=== PATIENT | female | born 1980 | race Caucasian/White ===

== ENCOUNTER 2016-09-14 14:31 | Emergency (ER) | payer MEDICAID ==
[2016-09-14] MEDS ORDERED: IBUPROFEN 400 MG TABLET PO STA (15:04)
[2016-09-14] MEDS ORDERED: oxyCOD/ACETAMIN 5 MG/325 MG TABLET PO STA (15:04)
[2016-09-14] MEDS ORDERED: oxyCOD/ACETAMIN 5 MG/325 MG TABLET PO ONE (15:09)
[2016-09-14] MEDS ORDERED: IBUPROFEN 400 MG TABLET PO ONE (15:09)
== END 2016-09-14 16:14 | disposition home or self-care (01) ==
DX: S90.31XA Contusion of right foot, initial encounter (principal); W22.8XXA Striking against or struck by other objects, initial encounter; M77.31 Calcaneal spur, right foot; Z86.718 Personal history of other venous thrombosis and embolism; F17.200 Nicotine dependence, unspecified, uncomplicated
CPT/HCPCS: 73650; 99283; A9270

== ENCOUNTER 2016-09-25 10:24 | Emergency (ER) | payer MEDICAID ==
[2016-09-25] MEDS ORDERED: CLINDAMYCIN 150 MG CAPSULE PO STA (12:44)
[2016-09-25] MEDS ORDERED: HYDROcod/ACETAM 5/325 MG TABLET PO STA (12:45)
[2016-09-25] MEDS ORDERED: IBUPROFEN 400 MG TABLET PO STA (12:45)
[2016-09-25] MEDS ORDERED: HYDROcod/ACETAM 5/325 MG TABLET ONE (12:50)
[2016-09-25] MEDS ORDERED: CLINDAMYCIN 150 MG CAPSULE PO ONE (12:50)
[2016-09-25] MEDS ORDERED: IBUPROFEN 400 MG TABLET PO ONE (12:51)
== END 2016-09-25 14:08 | disposition home or self-care (01) ==
DX: S02.5XXA Fracture of tooth (traumatic), initial encounter for closed fracture (principal); X58.XXXA Exposure to other specified factors, initial encounter; Y93.89 Activity, other specified; R03.0 Elevated blood-pressure reading, without diagnosis of hypertension; F17.200 Nicotine dependence, unspecified, uncomplicated; Z86.718 Personal history of other venous thrombosis and embolism
CPT/HCPCS: 36415; 85025; 99283; A9270

== ENCOUNTER 2017-01-13 20:25 | Emergency (ER) | payer MEDICAID ==
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
[2017-01-13 21:16] VITALS: BP 141/79
== END 2017-01-13 21:16 | disposition home or self-care (01) ==
LOC: ED 20:25
DX: T22.00XA Burn of unspecified degree of shoulder and upper limb, except wrist and hand, unspecified site, initial encounter (principal); X08.8XXA Exposure to other specified smoke, fire and flames, initial encounter; F17.200 Nicotine dependence, unspecified, uncomplicated
CPT/HCPCS: 99282

== ENCOUNTER 2017-01-30 14:39 | Emergency (ER) | payer MEDICAID ==
[2017-01-30 14:51] VITALS: BP 128/83
--- NOTE | 2017-01-30 16:07 | XRAY Preliminary Report ---
Exam: XR KNEE 4 VIEW RT IMPRESSION: No fracture or joint effusion. [facility] SITE ID: [id number]
--- NOTE | 2017-01-30 16:09 | XRAY Report ---
EXAM: RIGHT KNEE RADIOGRAPHY EXAM DATE: 01/30/2017 03:36 PM. CLINICAL HISTORY: Twisted knee two days ago. COMPARISON: None. TECHNIQUE: 4 views. FINDINGS: Bones: Normal. No fractures or bone lesions. Joints: Normal. No effusion. No subluxations. Soft Tissues: Normal. No soft tissue swelling. IMPRESSION: No fracture or joint effusion. [facility] Referring Provider Line: [phone] SITE ID: [id number]
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
== END 2017-01-30 18:00 | disposition home or self-care (01) ==
LOC: ED 14:39
DX: S83.411A Sprain of medial collateral ligament of right knee, initial encounter (principal); W08.XXXA Fall from other furniture, initial encounter; Y92.018 Other place in single-family (private) house as the place of occurrence of the external cause; Z86.718 Personal history of other venous thrombosis and embolism; F17.200 Nicotine dependence, unspecified, uncomplicated
CPT/HCPCS: 99283

== ENCOUNTER 2018-10-31 08:31 | Emergency (ER) | payer MEDICAID ==
[2018-10-31 08:37] VITALS: BP 139/78
--- NOTE | 2018-10-31 08:48 | ED Physician Documentation ---
PD HPI LOWER EXT INJURY - Stated complaint Stated Complaint: RT FT SWELLING/PAIN - Chief complaint Chief Complaint: Ext Problem - History obtained from History obtained from: Patient - History of Present Illness PD HPI LOW EXT INJURY LOCATION: Right, Foot Type of injury: Twist (she says she stepped in a hole and twisted foot. Has had pain since. Not improved with time and NSAIDs.) Timing - onset: How many months ago (1) Timing - duration: Months (1) Timing - details: Abrupt onset, Still present, Waxing and waning Worsened by: Moving, Other (walking) Associated symptoms: Swelling. 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 : None HEENT: None Psych: Depression, ADD/ADHD Musculoskeletal: None Derm: None - Past Surgical History Past Surgical History: Yes General: Cholecystectomy HEENT: Tonsil/Adenoidectomy - Present Medications Home Medications: Ambulatory Orders Medication Instructions Recorded Confirmed Methocarbamol 500 mg PO DAILY 01/30/17 01/30/17 Dexamethasone [Decadron] 4 mg PO DAILY #5 tablet 10/31/18 Hydrocodone/Acetaminophen [Ranger 1 each PO Q6H PRN #15 tablet 10/31/18 5-325 Tablet] Naproxen 500 mg PO BID #20 tablet 10/31/18 - Allergies Allergies/Adverse Reactions: Allergies Allergy/AdvReac Type Severity Reaction Status Date / Time amoxicillin [Amoxicillin] Allergy Rash Verified 01/13/17 20:35 cephalexin monohydrate * Allergy Nausea Verified 10/31/18 08:37 [From Keflex] - Social History Does the pt smoke?: Yes Smoking Status: Current every day smoker Does the pt drink ETOH?: No Does the pt have substance abuse?: No - Immunizations Immunizations are current?: Yes - POLST Patient has POLST: No PD ED PE NORMAL - Vitals Vital signs reviewed: Yes - General General: Alert and oriented X 3, No acute distress, Well developed/nourished - Derm Derm: Normal color, Warm and dry, No rash - Extremities Extremities: No edema, No calf tenderness / cord, Other (dorsolateral mid foot with tenderness. No redness nor swelling. Hurts with inversion. No plantar tenderness. ) - Neuro Neuro: No motor deficit, No sensory deficit Results - Vitals Vitals: Vital Signs - 24 hr 10/31/18 08:35 Temperature 36.6 C Heart Rate 77 Respiratory 20 Rate Blood Pressure 139/78 H O2 Saturation 99 Oxygen O2 Source Room air - Rads (name of study) right foot Radiology: Prelim report reviewed, EMP read contemporaneously (no fractures), See rad report PD MEDICAL DECISION MAKING - ED course Complexity details: reviewed results, considered differential (onset with twisting of foot when stepped in hole. Continued pain. No fractures on xray. Presume tendonitis/sprain.), d/w patient Departure - Departure Disposition: 01 Home, Self Care Clinical Impression: Extensor tendonitis of foot Right foot strain Qualifiers: Encounter type: initial encounter Qualified Code(s): S96.911A - Strain of unspecified muscle and tendon at ankle and foot level, right foot, initial encounter Condition: Stable Record reviewed to determine appropriate education?: Yes Instructions: ED Sprain Foot Prescriptions: Dexamethasone [Decadron] 4 mg PO DAILY #5 tablet Hydrocodone/Acetaminophen [Ranger 5-325 Tablet] 1 each PO Q6H PRN #15 tablet PRN Reason: Pain Naproxen 500 mg PO BID #20 tablet Comments: Your x-ray appears normal without any fractures. Presume you have some tendinitis or sprain of the foot that just is slow to improve. Add the postop shoe to reduce motion through the midfoot. Add anti-inflammatories some naproxen and Decadron as prescribed. Continue Tylenol as needed for pain. Add hydrocodone if needed for worse pain. Also consider possibly the pain and tenderness being from a gout episode in response to the injury. This would get treated with the above medications as well. However if you have recurrent episodes in the foot or other joints in the future, your primary care may want to do some more evaluation for possible gout. Discharge Date/Time: 10/31/18 11:00
[2018-10-31] MEDS ORDERED: NAPROXEN 250 MG TABLET PO STA (09:18)
[2018-10-31] MEDS ORDERED: DEXAMETHASONE 10 MG/ML VIAL PO STA (09:18)
[2018-10-31] MEDS ORDERED: CHERRY SYRUP 10 ML UDC PO ONE (09:18)
--- NOTE | 2018-10-31 10:01 | XRAY Report ---
Reason: foot pain for couple weeks, after twisting injury Procedure Date: 10/31/2018 Accession Number: [id number] / [id number] Procedure: XR - Foot 3 View RT CPT Code: FULL RESULT: EXAM: RIGHT FOOT RADIOGRAPHY EXAM DATE: 10/31/2018 09:31 AM. CLINICAL HISTORY: Persistent dorsal right foot pain for 3 weeks after a twisting injury. COMPARISON: Right calcaneus radiography performed on 09/14/2016. TECHNIQUE: 3 views. FINDINGS: Bones: Normal bone mineralization. No fracture. Benign bone island in the calcaneus. Small plantar calcaneal spur. No other focal bone lesion. Joints: Normal. No subluxations. Soft Tissues: Mild dorsal right forefoot soft tissue swelling. IMPRESSION: 1. Mild dorsal right forefoot soft tissue swelling. No fracture or subluxation. 2. Benign bone island in the calcaneus. 3. Small plantar calcaneal spur. [facility]
== END 2018-10-31 11:00 | disposition home or self-care (01) ==
LOC: ED 08:31
DX: M77.51 Other enthesopathy of right foot and ankle (principal); S96.911A Strain of unspecified muscle and tendon at ankle and foot level, right foot, initial encounter; X50.1XXA Overexertion from prolonged static or awkward postures, initial encounter; F17.200 Nicotine dependence, unspecified, uncomplicated
CPT/HCPCS: 73630; 99283; A9270

== ENCOUNTER 2020-02-29 16:58 | Emergency (ER) | payer MEDICAID ==
[2020-02-29] MEDS ORDERED: KETOROLAC 60 MG/2 ML VIAL IM STA (17:05)
[2020-02-29 17:06] VITALS: BP 148/98
--- NOTE | 2020-02-29 17:06 | ED Physician Documentation ---
PD HPI LOWER EXT INJURY - Stated complaint Stated Complaint: RT SHOULDER INJ - Chief complaint Chief Complaint: Ext Problem - History obtained from History obtained from: Patient - History of Present Illness PD HPI LOW EXT INJURY LOCATION: Right - Additional information Additional information: She has had trouble with the right shoulder and neck before but this is a new problem. She was making the bed this afternoon and sounds like she was externally rotating the right shoulder and without an injury such as a fall per se she developed severe pain near the right AC joint and difficulty with range of motion. No other injuries. 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 HEENT: None Psych: Depression, ADD/ADHD Musculoskeletal: None Derm: None - Past Surgical History Past Surgical History: Yes General: Cholecystectomy HEENT: Tonsil/Adenoidectomy - Present Medications Home Medications: Ambulatory Orders Medication Instructions Recorded Confirmed methocarbamoL [Methocarbamol] 500 mg PO DAILY 01/30/17 01/30/17 Hydrocodone/Acetaminophen [[place]on 1 each PO Q6H PRN #15 tablet 10/31/18 5-325 Tablet] Naproxen 500 mg PO BID #20 tablet 10/31/18 dexAMETHasone [Decadron] 4 mg PO DAILY #5 tablet 10/31/18 Cyclobenzaprine [Flexeril] 10 mg PO TID PRN #20 tablet 01/27/20 HYDROcod/ACETAM 5/325 [Grafton 5/325] 1 - 2 ea PO Q6H PRN #15 tablet 01/27/20 Ketorolac [Toradol] 10 mg PO Q6H PRN #15 tablet 02/29/20 - Allergies Allergies/Adverse Reactions: Allergies Allergy/AdvReac Type Severity Reaction Status Date / Time amoxicillin [Amoxicillin] Allergy Rash Verified 02/29/20 17:04 cephalexin monohydrate * Allergy Nausea Verified 02/29/20 17:04 [From Keflex] - Social History Does the pt smoke?: Yes Smoking Status: Current every day smoker Does the pt drink ETOH?: No Does the pt have substance abuse?: No - Immunizations Immunizations are current?: Yes - POLST Patient has POLST: No PD ED PE NORMAL - Vitals Vital signs reviewed: Yes - General General: Alert and oriented X 3, No acute distress - Neck Neck: Supple, no meningeal sign, No bony TTP - Extremities Extremities: Other (Tender over the right AC joint and can only abduct to about 45 degrees and stops then due to pain, no better passively.) - Neuro Neuro: Alert and oriented X 3, Normal speech Results - Vitals Vitals: Vital Signs - 24 hr 02/29/20 17:04 Temperature 36.8 C Heart Rate 80 Respiratory 16 Rate Blood Pressure 148/98 H O2 Saturation 100 Oxygen O2 Source Room air - Rads (name of study) R shoulder Radiology: EMP read contemporaneously (neg) Departure - Departure Disposition: Home, Self Care Clinical Impression: Right shoulder strain Qualifiers: Encounter type: initial encounter Qualified Code(s): S46.911A - Strain of unspecified muscle, fascia and tendon at shoulder and upper arm level, right arm, initial encounter Condition: Good Record reviewed to determine appropriate education?: Yes Instructions: ED Sprain AC Joint Prescriptions: Ketorolac [Toradol] 10 mg PO Q6H PRN #15 tablet PRN Reason: Pain Comments: Call your doctor to arrange a follow-up appointment, make the next available appointment. In the interim, return anytime if worse or if new symptoms develop. Discharge Date/Time: 02/29/20 18:13
--- NOTE | 2020-02-29 17:58 | XRAY Report ---
PROCEDURE: Shoulder 3 View RT INDICATIONS: shoulder pain/inj TECHNIQUE: 3 views of the shoulder were acquired. COMPARISON: None. FINDINGS: Bones: No fractures or dislocations. No suspicious bony lesions. Visualized ribs appear intact. Soft tissues: No suspicious soft tissue calcifications. IMPRESSION: No visualized acute fracture or dislocation. However, occult injury cannot be excluded. Recommend short interval imaging follow-up in 7-10 days as clinically indicated for additional evalua tion. Reviewed by: Lorena Gómez MD on 02/29/2020 5:57 PM PDT Approved by: Lorena Gómez MD on 02/29/2020 5:57 PM PDT Station ID: [id number]
[2020-02-29] MEDS ORDERED: HYDROcod/ACET 5/325 Prepack 4 PO STA (18:04)
== END 2020-02-29 18:13 | disposition home or self-care (01) ==
LOC: ED 16:58
DX: S46.911A Strain of unspecified muscle, fascia and tendon at shoulder and upper arm level, right arm, initial encounter (principal); X50.1XXA Overexertion from prolonged static or awkward postures, initial encounter; Y93.E9 Activity, other interior property and clothing maintenance; F17.210 Nicotine dependence, cigarettes, uncomplicated
CPT/HCPCS: 96372; 99283

== ENCOUNTER 2020-04-14 20:15 | Emergency (ER) | payer MEDICAID ==
[2020-04-14 20:51] LABS: BILIRUBIN,URINE NEGATIVE (NEGATIVE); GLUCOSE, URINE (UA) NEGATIVE (NEGATIVE); KETONES,URINE (UA) NEGATIVE (NEGATIVE); LEUKOCYTE ESTERASE, URINE TRACE (NEGATIVE); NITRITE,URINE NEGATIVE (NEGATIVE); OCCULT BLOOD,URINE TRACE-INTA (NEGATIVE); PH,URINE 7.5 PH (5.0-7.5); PROTEIN,URINE NEGATIVE (NEGATIVE); UROBILINOGEN,URINE 0.2 (NORMAL) E.U./dL (NORMAL)
[2020-04-14 20:54] LABS: CLARITY,URINE HAZY (CLEAR); HCG UR QUAL NEGATIVE
[2020-04-14 20:59] LABS: AMORPHOUS SEDIMENT,UR Moderate /LPF; BACTERIA,URINE Few /HPF (None Seen); RBC,URINE 0-5 /HPF (0-5); SQUAMOUS EPITHELIAL CELL,UR MOD Squamous (<= Few)
--- NOTE | 2020-04-14 21:02 | ED Physician Documentation ---
History of Present Illness - Stated complaint Stated Complaint: ABD PX - Chief complaint Chief Complaint: Abd Pain - Additonal information Additional information: 39-year-old female presents to the emergency department for evaluation of acute lower abdominal pain. She reports that this a.m. she woke up and had some periumbilical pain. However shortly after it migrated to the right lower quadrant. It feels like a tugging or pulling on her abdomen. She denies fevers or dysuria. This afternoon when she got home from work she ate dinner but it caused increasing nausea and worsening pain therefore she presents here for further evaluation Past surgical history includes previous cholecystectomy. Meds: meloxicam. Review of Systems Constitutional: reports: Reviewed and negative Ears: reports: Reviewed and negative Nose: reports: Reviewed and negative Throat: reports: Reviewed and negative Cardiac: reports: Reviewed and negative Respiratory: reports: Reviewed and negative GI: reports: Abdominal Pain, Nausea. 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, Other : None HEENT: None Psych: Depression, ADD/ADHD Musculoskeletal: None Derm: None Other Past Medical History: PCOS - Past Surgical History Past Surgical History: Yes General: Cholecystectomy HEENT: Tonsil/Adenoidectomy - Present Medications Home Medications: Ambulatory Orders Medication Instructions Recorded Confirmed methocarbamoL [Methocarbamol] 500 mg PO DAILY 01/30/17 01/30/17 Hydrocodone/Acetaminophen [[place] 1 each PO Q6H PRN #15 tablet 10/31/18 5-325 Tablet] Naproxen 500 mg PO BID #20 tablet 10/31/18 dexAMETHasone [Decadron] 4 mg PO DAILY #5 tablet 10/31/18 Cyclobenzaprine [Flexeril] 10 mg PO TID PRN #20 tablet 01/27/20 HYDROcod/ACETAM 5/325 [[place] 5/325] 1 - 2 ea PO Q6H PRN #15 tablet 01/27/20 Ketorolac [Toradol] 10 mg PO Q6H PRN #15 tablet 02/29/20 - Allergies Allergies/Adverse Reactions: Allergies Allergy/AdvReac Type Severity Reaction Status Date / Time amoxicillin [Amoxicillin] Allergy Rash Verified 04/14/20 20:29 cephalexin monohydrate * Allergy Nausea Verified 04/14/20 20:29 [From Keflex] - Social History Does the pt smoke?: No Smoking Status: Former smoker Does the pt drink ETOH?: No Does the pt have substance abuse?: No Substance Use and Type: Marijuana - Immunizations Immunizations are current?: Yes - POLST Patient has POLST: No PD ED PE EXPANDED - General General: Alert, No acute distress - Cardiac Cardiac: Regular Rate, Regular Rhythm, Radial strong equal, Pedal strong equal, Cap refill < 2 sec - Respiratory Respiratory: Clear to ausultation derek. No: Distress, Labored - Abdomen Abdomen: Normal Bowel sounds, Rebound, RLQ (Focal tenderness to light palpation right lower quadrant. Positive psoas positive McBurney's) - Derm Derm: Normal color, Warm and dry, Pale. No: Rash - Extremities Extremities: Normal - Neuro Neuro: Alert and Oriented X 3, CNII-XII intact - GCS Eye Opening: Spontaneous Motor: Obeys Commands Verbal: Oriented Total: 15 Results - Vitals Vitals: Vital Signs - 24 hr 04/14/20 04/14/20 20:27 20:40 Temperature 36.7 C Heart Rate 92 86 Respiratory 18 18 Rate Blood Pressure 145/84 H 141/84 H O2 Saturation 99 99 Oxygen O2 Source Room air - Labs Labs: Laboratory Tests 04/14/20 04/14/20 04/14/20 20:44 20:44 21:05 WBC 8.3 RBC 4.22 Hgb 13.4 Hct 40.2 MCV 95.3 MCH 31.8 H MCHC 33.3 RDW 12.9 Plt Count 217 MPV 9.6 Neut # (Auto) 4.9 Lymph # (Auto) 2.8 Phelps # (Auto) 0.5 Eos # (Auto) 0.1 Baso # (Auto) 0.1 Absolute Nucleated RBC 0.00 Nucleated RBC % 0.0 Sodium Potassium Chloride Carbon Dioxide Anion Gap BUN Creatinine Estimated GFR (MDRD) Glucose Calcium Total Bilirubin AST ALT Alkaline Phosphatase Total Protein Albumin Globulin Albumin/Globulin Ratio Lipase Urine Color YELLOW Urine Clarity HAZY Urine pH 7.5 Ur Specific [place] 1.020 1.020 Urine Protein NEGATIVE Urine Glucose (UA) NEGATIVE Urine Ketones NEGATIVE Urine Occult Blood TRACE-INTA Urine Nitrite NEGATIVE Urine Bilirubin NEGATIVE Urine Urobilinogen 0.2 (NORMAL) Ur Leukocyte Esterase TRACE H Urine RBC 0-5 Urine WBC 0-3 Ur Squamous Epith Cells MOD Squamous H Amorphous Sediment Moderate Urine Bacteria Few Ur Microscopic Review INDICATED Urine Culture Comments NOT INDICATED Urine HCG, Qual NEGATIVE 04/14/20 21:05 WBC RBC Hgb Hct MCV MCH MCHC RDW Plt Count MPV Neut # (Auto) Lymph # (Auto) Phelps # (Auto) Eos # (Auto) Baso # (Auto) Absolute Nucleated RBC Nucleated RBC % Sodium 136 Potassium 3.6 Chloride 101 Carbon Dioxide 27 Anion Gap 8.0 BUN 20 Creatinine 0.8 Estimated GFR (MDRD) 81 L Glucose 103 H Calcium 9.4 Total Bilirubin 0.6 AST 19 ALT 21 Alkaline Phosphatase 49 Total Protein 7.3 Albumin 4.3 Globulin 3.0 Albumin/Globulin Ratio 1.4 Lipase 43 Urine Color Urine Clarity Urine pH Ur Specific [place] Urine Protein Urine Glucose (UA) Urine Ketones Urine Occult Blood Urine Nitrite Urine Bilirubin Urine Urobilinogen Ur Leukocyte Esterase Urine RBC Urine WBC Ur Squamous Epith Cells Amorphous Sediment Urine Bacteria Ur Microscopic Review Urine Culture Comments Urine HCG, Qual - Rads (name of study) CT abd Radiology: Prelim report reviewed, Final report received PD MEDICAL DECISION MAKING - ED course Complexity details: reviewed results, re-evaluated patient, considered differential, d/w patient, d/w family ED course: 39-year-old female presents the emergency department for evaluation of acute onset now right lower quadrant abdominal pain. History and exam most concerning for acute appendicitis. CT of the abdomen is pending. - Labs reviewed in full. No acute abnormalities. Specifically no leukocytosis. Patient is not . CT of the abdomen did show a 3.2 x 3.4 cm right adnexal cyst likely ovarian. These findings were discussed with the patient. At this time her pain is moderate and improved following Dilaudid in the ER. I have recommended to her that she continue the meloxicam at home and alternate with Tylenol. Also close follow-up with primary care provider. Emergent return precautions discussed. Departure - Departure Disposition: Home, Self Care Clinical Impression: Ovarian cyst, right Condition: Stable Record reviewed to determine appropriate education?: Yes Comments: The CT of your abdomen showed that you have a 3.6 cm right ovarian cyst. This is most likely the cause of your pain. I would continue to alternate Tylenol with meloxicam at home. Warm compress may also be helpful. Please discuss this ED visit with your primary care doctor. Return to the emergency department if you develop fevers, have suddenly severe or different pain, uncontrolled vomiting or any other emergent concerns
[2020-04-14] MEDS ORDERED: ONDANSETRON 4 MG/2 ML VIAL IVP STA (21:03)
[2020-04-14] MEDS ORDERED: HYDROmorphone 1 MG/ML CARPUJECT IVP STA (21:03)
[2020-04-14 21:12] LABS: BASOPHILS # (AUTO) 0.1 10^3/uL (0.0-0.1); BASOPHILS % (AUTO) 0.6 %; EOSINOPHILS # (AUTO) 0.1 10^3/uL (0.0-0.7); EOSINOPHILS % (AUTO) 1.1 %; HGB - HEMOGLOBIN 13.4 g/dL (12.0-16.0); LYMPHOCYTES # (AUTO) 2.8 10^3/uL (1.5-3.5); LYMPHOCYTES % (AUTO) 33.9 %; MEAN CORPUSCULAR HEMOGLOBIN 31.8 pg (27.0-31.0); MEAN CORPUSCULAR HGB CONC 33.3 g/dL (32.0-36.0); MEAN CORPUSCULAR VOLUME 95.3 fL (81.0-99.0); MEAN PLATELET VOLUME 9.6 fL (7.9-10.8); MONOCYTES # (AUTO) 0.5 10^3/uL (0.0-1.0); MONOCYTES % (AUTO) 5.9 %; NEUTROPHILS # (AUTO) 4.9 10^3/uL (1.5-6.6); NEUTROPHILS % (AUTO) 58.3 %; PLT - PLATELET COUNT 217 10^3/uL (130-450); RED BLOOD COUNT 4.22 10^6/uL (4.20-5.40); RED CELL DISTRIBUTION WIDTH 12.9 % (12.0-15.0); WHITE BLOOD COUNT 8.3 x10^3/uL (4.8-10.8)
[2020-04-14 21:29] LABS: ALBUMIN 4.3 g/dL (3.2-5.5); ALBUMIN/GLOBULIN RATIO 1.4 (1.0-2.2); BILIRUBIN,TOTAL 0.6 mg/dL (0.2-1.0); CALCIUM 9.4 mg/dL (8.5-10.3); CREATININE 0.8 mg/dL (0.4-1.0); TOTAL PROTEIN 7.3 g/dL (6.7-8.2)
[2020-04-14] MEDS ORDERED: IOVERSOL 320 100 ML VIAL IVP ONE ×2 (21:39→21:58)
--- NOTE | 2020-04-14 22:05 | CT Report ---
PROCEDURE: Abdomen/Pelvis W INDICATIONS: RLQ pain; eval appy CONTRAST: IV CONTRAST: Optiray 320 ml: 100 PO CONTRAST: *NO PO CONTRAST TECHNIQUE: After the administration of intravenous contrast, 5 mm thick sections acquired from the diaphragms to the symphysis. 5 mm thick coronal and sagittal reformats were acquired. For radiation dose reducti on, the following was used: automated exposure control, adjustment of mA and/or kV according to zeyad ent size. COMPARISON: None. FINDINGS: Image quality: Excellent. ABDOMEN: Lung bases: Lung bases are clear. Heart size is normal. Solid organs: Liver and spleen are normal in size and enhancement. Gallbladder is surgically absent . Biliary system is non dilated. Pancreas enhances normally. No adrenal nodules. Kidneys demonstr ate normal size and enhancement, without hydronephrosis. Bilateral small nonobstructing renal stones . Peritoneum and bowel: Bowel loops demonstrate normal wall thickness and caliber. No free fluid or a ir. A normal appendix is identified. Nodes and vessels: No retroperitoneal or mesenteric adenopathy by size criteria. Aorta and inferior vena cava are normal in size. Miscellaneous: No ventral hernias. PELVIS: Genitourinary: Bladder wall thickness is normal. Miscellaneous: No inguinal hernias or adenopathy. 3.9 cm right adnexal cyst. Bones: No suspicious bony lesions. No vertebral body compression fractures. IMPRESSION: 1. There is a normal appendix. There is no evidence of acute appendicitis. 2. A 3.9 cm right adnexal cyst may potentially be the etiology of the patient's right lower quadrant pain. Reviewed by: Molina Elmore MD on 04/14/2020 10:04 PM PDT Approved by: Molina Elmore MD on 04/14/2020 10:04 PM PDT Station ID: [id number]
[2020-04-14 22:23] VITALS: BP 147/89
== END 2020-04-14 22:23 | disposition home or self-care (01) ==
LOC: ED 20:15
DX: N83.201 Unspecified ovarian cyst, right side (principal); Z86.718 Personal history of other venous thrombosis and embolism; Z87.891 Personal history of nicotine dependence
CPT/HCPCS: 36415; 74177; 80053; 81001; 81025; 83690; 85025; 96374; 99284; J1170; Q9967; 81003; 87086

== ENCOUNTER 2020-04-19 19:30 | Emergency (ER) | payer MEDICAID ==
[2020-04-19] MEDS ORDERED: ONDANSETRON 4 MG/2 ML VIAL IVP STA (19:43)
[2020-04-19] MEDS ORDERED: HYDROmorphone 1 MG/ML CARPUJECT IVP STA (19:43)
[2020-04-19] MEDS ORDERED: KETOROLAC 30 MG/ML VIAL IVP STA (19:43)
--- NOTE | 2020-04-19 19:45 | ED Physician Documentation ---
PD HPI ABD PAIN - Stated complaint Stated Complaint: SIDE PAIN, NAUSEA - Chief complaint Chief Complaint: Abd Pain - History obtained from History obtained from: Patient - Additional information Additional information: Recent diagnosis 3.6 cm right adnexal cyst. Pain gradually worse today and her doctor had told her if it got worse that she should seek emergency evaluation to make sure it was not coursing. She is mildly nauseous. Denies fevers. She has had some brownish vaginal discharge. 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, Other : None HEENT: None Psych: Depression, ADD/ADHD Musculoskeletal: None Derm: None - Past Surgical History Past Surgical History: Yes General: Cholecystectomy HEENT: Tonsil/Adenoidectomy - Present Medications Home Medications: Ambulatory Orders Medication Instructions Recorded Confirmed Hydrocodone/Acetaminophen [[place] 1 each PO Q6H PRN #15 tablet 10/31/18 5-325 Tablet] dexAMETHasone [Decadron] 4 mg PO DAILY #5 tablet 10/31/18 Cyclobenzaprine [Flexeril] 10 mg PO TID PRN #20 tablet 01/27/20 HYDROcod/ACETAM 5/325 [[place] 5/325] 1 - 2 ea PO Q6H PRN #15 tablet 01/27/20 Oxycodone HCl/Acetaminophen 1 - 2 each PO Q6H PRN #10 tablet 04/19/20 [Percocet 5-325 mg Tablet] - Allergies Allergies/Adverse Reactions: Allergies Allergy/AdvReac Type Severity Reaction Status Date / Time amoxicillin [Amoxicillin] Allergy Rash Verified 04/14/20 20:29 cephalexin monohydrate * Allergy Nausea Verified 04/14/20 20:29 [From Keflex] - Social History Does the pt smoke?: No Smoking Status: Former smoker Does the pt drink ETOH?: No Does the pt have substance abuse?: No - Immunizations Immunizations are current?: Yes - POLST Patient has POLST: No PD ED PE NORMAL - Vitals Vital signs reviewed: Yes - General General: Alert and oriented X 3, Other (She appears comfortable and not in overt distress.) - Abdomen Abdomen: Normal bowel sounds, Soft, Other (Mild right-sided abdominal tenderness without surgical signs) - Back Back: No CVA TTP, No spinal TTP - Extremities Extremities: No edema, No calf tenderness / cord - Neuro Neuro: Alert and oriented X 3, Normal speech Results - Vitals Vitals: Vital Signs - 24 hr 04/19/20 04/19/20 19:32 21:20 Temperature 36.8 C Heart Rate 76 70 Respiratory 18 18 Rate Blood Pressure 148/94 H 129/87 H O2 Saturation 98 99 Oxygen O2 Source Room air - Labs Labs: Laboratory Tests 04/19/20 04/19/20 19:50 19:50 WBC 8.0 RBC 4.35 Hgb 13.8 Hct 42.0 MCV 96.6 MCH 31.7 H MCHC 32.9 RDW 12.8 Plt Count 248 MPV 9.6 Neut # (Auto) 4.2 Lymph # (Auto) 3.1 [place] # (Auto) 0.5 Eos # (Auto) 0.2 Baso # (Auto) 0.1 Absolute Nucleated RBC 0.00 Nucleated RBC % 0.0 Sodium 139 Potassium 3.5 Chloride 103 Carbon Dioxide 27 Anion Gap 9.0 BUN 14 Creatinine 0.8 Estimated GFR (MDRD) 81 L Glucose 97 Calcium 9.7 PD MEDICAL DECISION MAKING - ED course ED course: 39-year-old woman presents with known right ovarian cyst with worsening today. Gradual worsening so torsion is unlikely but certainly on the differential. Therefore an ultrasound was done showing involution of the ovarian cyst from 3.9 cm down to 2 cm. She has follow-up follow-up with OB. Departure - Departure Disposition: 01 Home, Self Care Clinical Impression: Ovarian cyst, right Condition: Stable Record reviewed to determine appropriate education?: Yes Instructions: ED Cyst Ovarian Prescriptions: Oxycodone HCl/Acetaminophen [Percocet 5-325 mg Tablet] 1 - 2 each PO Q6H PRN #10 tablet PRN Reason: pain Comments: You were seen today for right-sided abdominal pain. We knew you had an ovarian cyst and there was a concern that it may have torsed. Ultrasound demonstrated good blood flow and the cyst is getting smaller, on the previous CT it was 3.9 cm, now it is about 2 cm. 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 And return if worse. Make sure to take the copy of the ultrasound on CD with you to that appointment. Do not drink or drive while taking narcotic pain medication. Note that many narcotic pain relievers also contain Tylenol/acetaminophen. Please ensure that your total dose of acetaminophen from all sources does not exceed 3 g (3000 mg) per day. You may get constipated while on this medication. Take a stool softener such as Colace twice a day while you are on it. Also add an [id number]-glbrphm laxative such as senna or MiraLAX on any day that you do not have a bowel movement. If you received a narcotic pain medication or sedative while in the emergency department, do not drive for the next 24 hours.
[2020-04-19 20:03] LABS: BASOPHILS # (AUTO) 0.1 10^3/uL (0.0-0.1); BASOPHILS % (AUTO) 0.6 %; EOSINOPHILS # (AUTO) 0.2 10^3/uL (0.0-0.7); EOSINOPHILS % (AUTO) 1.9 %; HGB - HEMOGLOBIN 13.8 g/dL (12.0-16.0); LYMPHOCYTES # (AUTO) 3.1 10^3/uL (1.5-3.5); LYMPHOCYTES % (AUTO) 38.3 %; MEAN CORPUSCULAR HEMOGLOBIN 31.7 pg (27.0-31.0); MEAN CORPUSCULAR HGB CONC 32.9 g/dL (32.0-36.0); MEAN CORPUSCULAR VOLUME 96.6 fL (81.0-99.0); MEAN PLATELET VOLUME 9.6 fL (7.9-10.8); MONOCYTES # (AUTO) 0.5 10^3/uL (0.0-1.0); MONOCYTES % (AUTO) 6.5 %; NEUTROPHILS # (AUTO) 4.2 10^3/uL (1.5-6.6); NEUTROPHILS % (AUTO) 52.3 %; PLT - PLATELET COUNT 248 10^3/uL (130-450); RED BLOOD COUNT 4.35 10^6/uL (4.20-5.40); RED CELL DISTRIBUTION WIDTH 12.8 % (12.0-15.0)
[2020-04-19 20:13] LABS: CALCIUM 9.7 mg/dL (8.5-10.3); CREATININE 0.8 mg/dL (0.4-1.0)
--- NOTE | 2020-04-19 21:15 | Ultrasound Report ---
PROCEDURE: Pelvic w/Transvag+Doppler Comp INDICATIONS: pelvic pain, R TECHNIQUE: Real-time scanning was performed of the pelvic organs, with image documentation. Additional endovagi nal scanning was necessary due to incomplete visualization of the adnexal and endometrial structures by transabdominal scanning. COMPARISON: None. FINDINGS: Transabdominal scanning: Limited scanning through the kidneys shows no hydronephrosis. No pathologi c free abdominal or pelvic fluid. Endovaginal scanning: Uterus: Uterus is normal in size at 2.6 x 5.5 x 8.1 cm. There is a subserosal uterine fibroid in th e anterior midline position measuring 1.7 cm. Small nabothian cysts. The endometrium measures 8 mm in combined thickness. Ovaries: Probable hemorrhagic cyst versus endometrioma in the right ovary measuring 2 cm with periph eral vascularity. Otherwise normal appearance of both ovaries. IMPRESSION: Subserosal uterine fibroid measuring 1.7 cm. Approximately 2 cm right ovarian mass, significantly decreased in size from the 3.9 cm right ovarian mass seen on 04/14/2020 exam, consistent with an involuting hemorrhagic cyst. Follow-up in 4-6 weeks recommended to document complete resolution and exclusion of an endometrioma. Reviewed by: Nathan Clarke MD on 04/19/2020 9:13 PM PST Approved by: Nathan Clarke MD on 04/19/2020 9:13 PM PST Station ID: [id number]
[2020-04-19] MEDS ORDERED: oxyCODONE/ACET 5/325 Prepack 4 PO STA (21:32)
[2020-04-19 21:38] VITALS: BP 131/101
== END 2020-04-19 21:49 | disposition home or self-care (01) ==
LOC: ED 19:30
DX: N83.201 Unspecified ovarian cyst, right side (principal); D25.2 Subserosal leiomyoma of uterus; Z87.891 Personal history of nicotine dependence
CPT/HCPCS: 36415; 76830; 76856; 80048; 85025; 93975; 96374; 96375; 99284; J1170

== ENCOUNTER 2020-07-01 09:11 | Outpatient (CLI) | payer MEDICAID ==
--- OUTSIDE RECORDS SUMMARY | 2020-07-01 09:15 | EXTERNAL MEDICAL SUMMARY RPT | Continuity of Care Document ---
:1980 Demographics Phone Unavailable Preferred Language Swiss Marital Status Unknown Gnosticist Affiliation Unknown Race Unknown Ethnic Group Unknown Author Organization [facility] Address [address] [place] [address] Phone Care Team Providers Name Role Phone RELL Unavailable Unavailable Brennick Unavailable Unavailable Problems date description facility [facility] Ex-smoker (finding) [facility] 2020-04-14 20:15 UNSPECIFIED OVARIAN CYST, RIGHT [facility] SIDE 2020-04-14 20:15 PERSONAL HISTORY OF OTHER VENOUS [facility] THROMBOSIS AND EM 2020-04-14 20:15 PERSONAL HISTORY OF NICOTINE [facility] DEPENDENCE 2020-04-19 19:30 SUBSEROSAL LEIOMYOMA OF UTERUS [facility] 2020-04-19 19:30 UNSPECIFIED OVARIAN CYST, RIGHT [facility] SIDE 2020-04-19 19:30 PERSONAL HISTORY OF NICOTINE [facility] DEPENDENCE Allergies date description facility [facility] NO KNOWN ENVIRONMENTAL ALLERGIES [facility] NO KNOWN ALLERGIES [facility] NO ALLERGY INFORMATION AVAILABLE [facility] NO KNOWN ALLERGIES [facility] cephalexin monohydrate * [facility] amoxicillin [facility] Procedures date description facility 2020-05-30 00:00:00 [facility] date description facility 2020-05-30 00:00:00 [facility] Results Social History date description facility [id number] Ex-smoker (finding) [facility] Social History date description facility [id number] Ex-smoker (finding) [facility] date description facility [id number]
--- NOTE | 2020-07-01 10:14 | CT Report ---
PROCEDURE: Abdomen/Pelvis WO INDICATIONS: NEPHROLITHIASIS TECHNIQUE: Noncontrast 5 mm thick sections acquired from the diaphragms to the symphysis. 5 mm coronal and sagi ttal reformats were then performed. For radiation dose reduction, the following was used: automated exposure control, adjustment of mA and/or kV according to patient size. COMPARISON: 04/14/2020, 06/28/2015. FINDINGS: Image quality: Excellent. ABDOMEN: Lung bases: Lung bases are clear. Heart size is normal. Solid organs: Noncontrast evaluation of the liver demonstrates no focal hepatic lesions. The gallbla dder is surgically absent. Pancreas is normal in contours. No adrenal nodules. The kidneys demonstra te no hydronephrosis. There is a small nonobstructing right renal stone measuring up to 2 mm. A small nonobstructing left renal stone measures up to 3 mm. A cortical cyst is redemonstrated in the superi or pole the left kidney. Peritoneum and bowel: Unenhanced bowel loops demonstrate normal wall thickness and caliber. The ga endix is normal in appearance. There is mild colonic diverticulosis without acute diverticulitis. No free fluid or air. Nodes and vessels: No retroperitoneal or mesenteric adenopathy by size criteria. Aorta and inferior vena cava are normal in caliber. Miscellaneous: No ventral hernias. PELVIS: Genitourinary: Bladder wall thickness is normal. No calcified bladder stones. There is a left ovaria n cyst measuring up to approximately 2.4 cm. Miscellaneous: No inguinal hernias or adenopathy. Bones: No suspicious bony lesions. No vertebral body compression fractures. IMPRESSION: 1. Bilateral nephrolithiasis without evidence of obstructive uropathy. 2. Left ovarian cyst measuring up to 2.4 cm likely represents a physiologic follicular cyst. Reviewed by: Sebastián Mclean MD on 07/01/2020 10:12 AM [facility] Approved by: Sebastián Mclean MD on 07/01/2020 10:12 AM PST Station ID: [id number]
== END 2020-07-01 09:12 | disposition home or self-care (01) ==
LOC: DI 09:11
PROVIDERS: ATTEND Physician Assistant Medical
DX: N20.0 Calculus of kidney (principal); N83.202 Unspecified ovarian cyst, left side
CPT/HCPCS: 74176

== ENCOUNTER 2020-08-03 13:30 | Emergency (ER) | payer MEDICAID ==
[2020-08-03 13:38] VITALS: BP 147/88
--- NOTE | 2020-08-03 14:27 | XRAY Report ---
PROCEDURE: Foot 3 View RT INDICATIONS: Trauma TECHNIQUE: 3 views of the foot were acquired. COMPARISON: 08/31/2018 FINDINGS: Bones: No fractures or dislocations. No suspicious bony lesions. Plantar and posterior calcaneal s purring. Diffuse hindfoot and midfoot joint degeneration. Scattered subchondral sclerosis and spurrin g. Soft tissues: No tibiotalar joint effusion. Achilles tendon appears normal. IMPRESSION: No definite fracture however follow-up radiographs in 10 days could be performed if the patient's sym ptoms do not improve to exclude occult fracture/assess for healing sclerosis. Chronic degenerative changes as above Reviewed by: Kem Berry MD on 08/03/2020 2:26 PM PST Approved by: Kem Berry MD on 08/03/2020 2:26 PM PST Station ID: [id number]
[2020-08-03] MEDS ORDERED: IBUPROFEN 800 MG TABLET PO STA (14:52)
--- NOTE | 2020-08-03 14:54 | ED Physician Documentation ---
PD HPI LOWER EXT INJURY - Stated complaint Stated Complaint: RT FOOT INJURY - Chief complaint Chief Complaint: Trauma Ext - History obtained from History obtained from: Patient - History of Present Illness PD HPI LOW EXT INJURY LOCATION: Right, Foot Type of injury: Other (wood splitting maul fell on foot.) Where injury occurred: Home Timing - onset: How many hours ago (1) Timing - duration: Hours (1) Timing - details: Abrupt onset Pain level max: 6 Pain level now: 5 Improved by: Rest Worsened by: Moving, Palpating Associated symptoms: No: Weakness, Numbness, Tingling, Swelling Contributing factors: No: Anticoagulated Review of Systems Constitutional: denies: Fever, Chills GI: denies: Vomiting : denies: Now EGA PD PAST MEDICAL HISTORY - Past Medical History Cardiovascular: Deep vein thrombosis Respiratory: None Neuro: Migraines Endocrine/Autoimmune: None GI: None 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, Other : None HEENT: None Psych: Depression, ADD/ADHD Musculoskeletal: None Derm: None - Past Surgical History Past Surgical History: Yes General: Cholecystectomy HEENT: Tonsil/Adenoidectomy - Present Medications Home Medications: Ambulatory Orders Medication Instructions Recorded Confirmed Ibuprofen [Motrin] 800 mg PO Q8H PRN #30 tab 08/03/20 Pregabalin [Lyrica] 50 mg PO BID 08/03/20 08/03/20 - Allergies Allergies/Adverse Reactions: Allergies Allergy/AdvReac Type Severity Reaction Status Date / Time amoxicillin [Amoxicillin] Allergy Rash Verified 08/03/20 13:34 cephalexin monohydrate * Allergy Nausea Verified 08/03/20 13:34 [From Keflex] - Social History Does the pt smoke?: No Smoking Status: Never smoker Does the pt drink ETOH?: No Does the pt have substance abuse?: No - Immunizations Immunizations are current?: Yes - POLST Patient has POLST: No PD ED PE NORMAL - Vitals Vital signs reviewed: Yes - General General: Alert and oriented X 3, No acute distress - HEENT HEENT: Moist mucous membranes - Neck Neck: Supple, no meningeal sign - Cardiac Cardiac: RRR - Respiratory Respiratory: No respiratory distress, Clear bilaterally - Derm Derm: Warm and dry - Extremities Extremities: Other (TTP over the dorsum of the R foot. NVI. No swelling. no deformity. ) - Neuro Neuro: Alert and oriented X 3 Results - Vitals Vitals: Vital Signs - 24 hr 08/03/20 13:35 Temperature 37.3 C Heart Rate 74 Respiratory 20 Rate Blood Pressure 147/88 H O2 Saturation 97 Oxygen O2 Source Room air - Rads (name of study) R foot xray Radiology: Prelim report reviewed, EMP read contemporaneously, See rad report (no acute findings.) PD MEDICAL DECISION MAKING - ED course Complexity details: reviewed results, re-evaluated patient, considered differe ntial, d/w patient ED course: No acute abnormality on x-ray. Given crutches as she was having difficulty ambulating. Will make weightbearing as tolerated. Patient counseled regarding signs and symptoms for which I believe and urgent re-evaluation would be necessary. Patient with good understanding of and agreement to plan and is comfortable going home at this time This document was made in part using voice recognition software. While efforts are made to proofread this document, sound alike and grammatical errors may occur. Departure - Departure Disposition: 01 Home, Self Care Clinical Impression: Contusion of foot, right Qualifiers: Encounter type: initial encounter Qualified Code(s): S90.31XA - Contusion of right foot, initial encounter Condition: Good Instructions: ED Contusion Foot Follow-Up: your,doctor in 1 week [Other] Prescriptions: Ibuprofen [Motrin] 800 mg PO Q8H PRN #30 tab PRN Reason: PAIN &/OR FEVER Comments: Thankfully there are no fractures on your x-ray today. You may bear weight as tolerated. You will likely be sore for several days. If you are still having pain in 1 week, follow-up with your doctor for repeat evaluation.
== END 2020-08-03 15:27 | disposition home or self-care (01) ==
LOC: ED 13:30
DX: S90.31XA Contusion of right foot, initial encounter (principal); W20.8XXA Other cause of strike by thrown, projected or falling object, initial encounter; Y92.009 Unspecified place in unspecified non-institutional (private) residence as the place of occurrence of the external cause
CPT/HCPCS: 73630; 99283; 99284; A9270

== ENCOUNTER 2020-08-26 12:33 | Emergency (ER) | payer MEDICAID ==
[2020-08-26] MEDS ORDERED: HYDROcod/ACETAM 5/325 MG TABLET PO STA (14:40)
[2020-08-26] MEDS ORDERED: CHERRY SYRUP 10 ML UDC PO ONE (14:41)
[2020-08-26] MEDS ORDERED: DEXAMETHASONE 10 MG/ML VIAL PO STA (14:41)
--- NOTE | 2020-08-26 14:41 | ED Physician Documentation ---
PD HPI BACK PAIN - Stated complaint Stated Complaint: BACK/ABD PX - Chief complaint Chief Complaint: Back Pain - History obtained from History obtained from: Patient - History of Present Illness Timing - onset: How many months ago (5) Timing - duration: Months (5) Timing - details: Gradual onset, Still present, Waxing and waning (worse the past week) Location: Lower (thoracolumbar area), Right Quality: Pain, Spasm Associated symptoms: No: Fever, Weakness, Numbness Worsened by: Movement, Palpation Contributing factors: No: Lifting, Twisting Similar symptoms before: No diagnosis (states has had CTs, colonoscopy, labs, UA, and had MRI lumbar area. Her PMD is trying for approval for MRI thoracic area too now. Meanwhile having increased pain over baseline without obvious provocation.) Review of Systems Constitutional: denies: Fever, Chills Nose: denies: Rhinorrhea / runny nose, Congestion Throat: denies: Sore throat Respiratory: denies: Cough GI: reports: Abdominal Pain (right lower abd/inguinal area to right anterior thigh, originating right thoracolumbar area of back.), Nausea. 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, Other : None HEENT: None Psych: Depression, ADD/ADHD Musculoskeletal: None Derm: None - Past Surgical History Past Surgical History: Yes General: Cholecystectomy HEENT: Tonsil/Adenoidectomy - Present Medications Home Medications: Ambulatory Orders Medication Instructions Recorded Confirmed Ibuprofen [Motrin] 800 mg PO Q8H PRN #30 tab 08/03/20 Pregabalin [Lyrica] 50 mg PO BID 08/03/20 08/03/20 HYDROcod/ACETAM 5/325 [[place] 5/325] 1 ea PO Q8H PRN #25 tablet 08/26/20 Nortriptyline [Pamelor] 10 mg PO QPM #30 cap 08/26/20 dexAMETHasone [Decadron] 4 mg PO DAILY #7 tablet 08/26/20 - Allergies Allergies/Adverse Reactions: Allergies Allergy/AdvReac Type Severity Reaction Status Date / Time amoxicillin [Amoxicillin] Allergy Rash Verified 08/26/20 12:41 cephalexin monohydrate * Allergy Nausea Verified 08/26/20 12:41 [From Keflex] - Social History Does the pt smoke?: No Smoking Status: Never smoker Does the pt drink ETOH?: No Does the pt have substance abuse?: No - Immunizations Immunizations are current?: Yes - POLST Patient has POLST: No PD ED PE NORMAL - General General: Alert and oriented X 3, No acute distress, Well developed/nourished - Abdomen Abdomen: Soft, Non distended, Other (minimal tenderness right lower abd/inguinal area. ) - Back Back: No spinal TTP (no tenderness to palpation. ) - Derm Derm: Normal color, Warm and dry - Extremities Extremities: Normal ROM s pain, No edema, No calf tenderness / cord - Neuro Neuro: Alert and oriented X 3, No motor deficit, No sensory deficit, Normal speech Results - Vitals Vitals: Vital Signs - 24 hr 08/26/20 08/26/20 12:37 15:44 Temperature 36.7 C Heart Rate 85 80 Respiratory 16 16 Rate Blood Pressure 148/102 H 147/92 H O2 Saturation 100 100 Oxygen O2 Source Room air PD MEDICAL DECISION MAKING - ED course Complexity details: considered differential (her pain is upper lumbar area with radiation to right inguinal/anterior thigh. Has had extensive workup, so I do not see value of imaging/etc here. Discussed meds for nerve pain/neuralgia. ), d/w patient Departure - Departure Disposition: 01 Home, Self Care Clinical Impression: Radiculitis Low back pain Qualifiers: Chronicity: chronic Back pain laterality: right Sciatica presence: unspecified whether sciatica present Qualified Code(s): M54.5 - Low back pain Condition: Stable Record reviewed to determine appropriate education?: Yes Instructions: ED Sciatica Follow-Up: MARINO ZACARIAS MD [Primary Care Provider] - Prescriptions: dexAMETHasone [Decadron] 4 mg PO DAILY #7 tablet HYDROcod/ACETAM 5/325 [[place] 5/325] 1 ea PO Q8H PRN #25 tablet PRN Reason: Pain Nortriptyline [Pamelor] 10 mg PO QPM #30 cap Comments: Continue your current medications. Add Decadron steroid low-dose 4 mg daily for a week to try to help with nerve root inflammation. Also add nortriptyline also low-dose at 10 mg nightly to try to work in conjunction with the Lyrica regarding nerve irritation. Add Tylenol or hydrocodone as needed for pain. Follow-up with your primary care. Discharge Date/Time: 08/26/20 15:46
[2020-08-26 15:46] VITALS: BP 147/92
== END 2020-08-26 15:46 | disposition home or self-care (01) ==
LOC: ED 12:33
DX: M54.16 Radiculopathy, lumbar region (principal)
CPT/HCPCS: 99282; 99284; A9270

== ENCOUNTER 2020-09-18 17:49 | Emergency (ER) | payer MEDICAID ==
[2020-09-18] MEDS ORDERED: HYDROcod/ACETAM 5/325 MG TABLET PO STA (19:03)
--- NOTE | 2020-09-18 19:14 | ED Physician Documentation ---
PD HPI BACK PAIN - Stated complaint Stated Complaint: BACK PX, EYE TWITCHING - Chief complaint Chief Complaint: Back Pain - History obtained from History obtained from: Patient - History of Present Illness Timing - onset: Chronic Timing - duration: Other (worse x 3 days after physical therapy.) Timing - details: Gradual onset Pain level max: 8 Pain level now: 8 Location: Mid, Right Quality: Pain, Sharp, Similar to prior episodes Associated symptoms: No: Fever, Weakness, Numbness, Incontinent of urine, Unable to urinate, Hematuria, Incontinent of stool Improves with: Rest Worsened by: Movement Contributing factors: No: Lifting, Twisting, Trauma, Anticoagulated, Cancer, IVDA, Out of meds Similar symptoms before: Diagnosis (states has "an entraped nerve" in her back. Awaiting MRI.) - Additional information Additional information: States normally takes vicodin when pain increases but doesn't have any at home today. 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 : None HEENT: None Psych: Depression, ADD/ADHD Musculoskeletal: None Derm: None - Past Surgical History Past Surgical History: Yes General: Cholecystectomy HEENT: Tonsil/Adenoidectomy - Present Medications Home Medications: Ambulatory Orders Medication Instructions Recorded Confirmed Ibuprofen [Motrin] 800 mg PO Q8H PRN #30 tab 08/03/20 09/18/20 Pregabalin [Lyrica] 50 mg PO DAILY 08/03/20 09/18/20 HYDROcod/ACETAM 5/325 [[place] 5/325] 1 - 2 ea PO Q6H PRN #14 tablet 09/18/20 Pregabalin [Lyrica] 100 mg PO QPM 09/18/20 09/18/20 - Allergies Allergies/Adverse Reactions: Allergies Allergy/AdvReac Type Severity Reaction Status Date / Time amoxicillin [Amoxicillin] Allergy Rash Verified 09/18/20 17:53 cephalexin monohydrate * Allergy Nausea Verified 09/18/20 17:53 [From Keflex] - Social History Does the pt smoke?: No Smoking Status: Never smoker Does the pt drink ETOH?: No Does the pt have substance abuse?: No - Immunizations Immunizations are current?: Yes - POLST Patient has POLST: No PD ED PE NORMAL - Vitals Vital signs reviewed: Yes - General General: Alert and oriented X 3, No acute distress - HEENT HEENT: Moist mucous membranes - Neck Neck: Supple, no meningeal sign - Cardiac Cardiac: RRR, Strong equal pulses - Respiratory Respiratory: No respiratory distress, Clear bilaterally - Abdomen Abdomen: Soft, Non tender, Non distended - Back Back: No spinal TTP - Derm Derm: Warm and dry - Extremities Extremities: No edema, Other (Normal bilateral lower extremity patellar and ankle jerk reflexes. Normal great toe extension bilaterally. no saddle ane sthesia) - Neuro Neuro: Alert and oriented X 3, No motor deficit, No sensory deficit - Psych Psych: Normal mood, Normal affect Results - Vitals Vitals: Vital Signs - 24 hr 09/18/20 09/18/20 17:55 19:25 Temperature 36.7 C 36.8 C Heart Rate 81 81 Respiratory 19 16 Rate Blood Pressure 144/64 H 161/98 H O2 Saturation 99 100 Oxygen O2 Source Room air PD MEDICAL DECISION MAKING - ED course Complexity details: considered differential (No cauda equina, no spinal epidural abscess, no fracture, no aortic dissection or evidence of aneursym rupture), d/w patient ED course: Patient with her usual back pain. Requesting pain medications. Will prescribe a small amount for her and follow-up with her doctor on Monday for further care. No evidence of cauda equina, epidural abscess. Ambulating well. Patient counseled regarding signs and symptoms for which I believe and urgent re- evaluation would be necessary. Patient with good understanding of and agreement to plan and is comfortable going home at this time This document was made in part using voice recognition software. While efforts are made to proofread this document, sound alike and grammatical errors may occur. Departure - Departure Disposition: Home, Self Care Clinical Impression: Back pain Qualifiers: Back pain location: back pain in unspecified location Chronicity: chronic Back pain laterality: right Qualified Code(s): M54.9 - Dorsalgia, unspecified Radiculopathy Qualifiers: Spinal region: unspecified Qualified Code(s): M54.10 - Radiculopathy, site unspecified Condition: Good Instructions: ED Neck Back Pain General Follow-Up: Provider,Other [Primary Care Provider] - Within 1 week Prescriptions: HYDROcod/ACETAM 5/325 [[place] 5/325] 1 - 2 ea PO Q6H PRN #14 tablet PRN Reason: Pain Comments: Use the medication as needed for pain. Follow-up with your doctor for further care. Return if you worsen. Do not drink alcohol or drive while on narcotic pain medicine. Note that many narcotic pain relievers also contain tylenol/acetaminophen. Please ensure that your total dose of acetaminophen from all sources does not exceed 3 grams (3000mg) per day. You may constipated on this medication, take a stool softener such as "Colace" twice a day while you are on it. Also recommend a bhmx-lax-[id number] laxative such as senna or MiraLAX any day that you do not have a bowel movement. If you received narcotic pain medication in the emergency department, do not drive or operate machinery for the next 24 hours. Discharge Date/Time: 09/18/20 19:28
[2020-09-18 19:26] VITALS: BP 161/98
--- OUTSIDE RECORDS SUMMARY | 2020-09-23 02:19 | EXTERNAL MEDICAL SUMMARY RPT | Continuity of Care Document ---
:1980 Demographics Phone Unavailable Preferred Language Unknown Marital Status Unknown Judaism Affiliation Unknown Race Unknown Ethnic Group Unknown Author Organization [place] Address [address] [place] [address] Phone Social History date description facility [phone]
== END 2020-09-18 19:28 | disposition home or self-care (01) ==
LOC: ED 17:49
DX: M54.9 Dorsalgia, unspecified (principal); G89.29 Other chronic pain; M54.10 Radiculopathy, site unspecified
CPT/HCPCS: 99282; 99284; A9270

== ENCOUNTER 2020-10-29 11:42 | Emergency (ER) | payer MEDICAID ==
--- NOTE | 2020-10-29 13:00 | ED Physician Documentation ---
PD HPI UPPER EXT INJURY - Stated complaint Stated Complaint: RT SHOULDER PX - Chief complaint Chief Complaint: Ext Problem - History obtained from History obtained from: Patient - History of Present Illness Location: Right Type of injury: Fall Where injury occurred: [place] Timing - onset: Today - Additonal information Additional information: About 730 this morning [place]. The dog yanked the leash as it was chasing a chipmunk and she fell directly on the right shoulder and has pain across the top of the right shoulder. No other injuries. No possibility of . 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 : None HEENT: None Psych: Depression, ADD/ADHD Musculoskeletal: None Derm: None - Past Surgical History Past Surgical History: Yes General: Cholecystectomy HEENT: Tonsil/Adenoidectomy - Present Medications Home Medications: Ambulatory Orders Medication Instructions Recorded Confirmed Ibuprofen [Motrin] 800 mg PO Q8H PRN #30 tab 08/03/20 09/18/20 Pregabalin [Lyrica] 50 mg PO DAILY 08/03/20 09/18/20 HYDROcod/ACETAM 5/325 [[place] 5/325] 1 - 2 ea PO Q6H PRN #14 tablet 09/18/20 Pregabalin [Lyrica] 100 mg PO QPM 09/18/20 09/18/20 Meloxicam [Mobic] 7.5 mg PO BID PRN #20 tablet 10/29/20 - Allergies Allergies/Adverse Reactions: Allergies Allergy/AdvReac Type Severity Reaction Status Date / Time amoxicillin [Amoxicillin] Allergy Rash Verified 10/29/20 11:53 cephalexin monohydrate * Allergy Nausea Verified 10/29/20 11:53 [From Keflex] - Social History Does the pt smoke?: No Smoking Status: Never smoker Does the pt drink ETOH?: No Does the pt have substance abuse?: No - Immunizations Immunizations are current?: Yes - POLST Patient has POLST: No PD ED PE NORMAL - Vitals Vital signs reviewed: Yes - General General: Alert and oriented X 3, No acute distress - HEENT HEENT: PERRL, EOMI - Neck Neck: Supple, no meningeal sign, No bony TTP - Extremities Extremities: Other (Tender to the acromioclavicular joint on the right. No deformity. No primary clavicle tenderness. Minimal tenderness over the glenohumeral joint and posterior shoulder. Able to abduct to about 45 degrees and then too painful to go further.) - Neuro Neuro: Alert and oriented X 3, Normal speech Results - Vitals Vitals: Vital Signs - 24 hr 10/29/20 11:53 Temperature 36.5 C Heart Rate 95 Respiratory 16 Rate Blood Pressure 150/100 H O2 Saturation 100 Oxygen O2 Source Room air - Rads (name of study) 3 views of the right shoulder Radiology: EMP read contemporaneously (Normal) PD MEDICAL DECISION MAKING - ED course ED course: [place] E reviewed, some concern for relatively frequent emergency department use, 9 visits in the last 12 months for varied complaints, has received a total of 418 quantity for controlled substances in 12 months from 8 unique prescribers. Departure - Departure Disposition: 01 Home, Self Care Clinical Impression: Acromioclavicular joint separation, type 1 Qualifiers: Encounter type: initial encounter Laterality: right Qualified Code(s): S43.101A - Unspecified dislocation of right acromioclavicular joint, initial encounter Condition: Good Record reviewed to determine appropriate education?: Yes Instructions: ED Sprain AC Joint Follow-Up: [facility] [Provider Group] Prescriptions: Meloxicam [Mobic] 7.5 mg PO BID PRN #20 tablet PRN Reason: Pain Comments: Come out of the sling several times a day to do gentle range of motion exercises. Return for new or worsening symptoms. Follow-up with the orthopedic clinic, call today for an appointment.
--- NOTE | 2020-10-29 13:02 | XRAY Report ---
PROCEDURE: Shoulder 3 View RT INDICATIONS: shoulder inj TECHNIQUE: 3 views of the shoulder were acquired. COMPARISON: None. FINDINGS: Bones: No fractures or dislocations. No suspicious bony lesions. Visualized ribs appear intact. Soft tissues: No suspicious soft tissue calcifications. IMPRESSION: Unremarkable right shoulder radiographs Reviewed by: Victor Manuel Germain MD on 10/29/2020 12:01 PM [facility] Approved by: Victor Manuel Germain MD on 10/29/2020 12:01 PM [facility] Station ID: [id number]
[2020-10-29 13:16] VITALS: BP 130/88
== END 2020-10-29 13:15 | disposition home or self-care (01) ==
LOC: ED 11:42
DX: S43.101A Unspecified dislocation of right acromioclavicular joint, initial encounter (principal); W18.30XA Fall on same level, unspecified, initial encounter; Y93.K1 Activity, walking an animal; Y92.838 Other recreation area as the place of occurrence of the external cause
CPT/HCPCS: 99281; 99283

== ENCOUNTER 2022-05-01 10:11 | Emergency (ER) | payer MEDICAID ==
--- OUTSIDE RECORDS SUMMARY | 2022-05-01 12:08 | EXTERNAL MEDICAL SUMMARY RPT | Continuity of Care Document ---
:1980 Author Organization [place] Address [address] [place] [address] Phone Care Team Providers Name Role Phone Faye Lane Unavailable Unavailable Allergies and Intolerances date description facility type (no date) [facility] (unknown) (no date) [facility] (unknown) (no date) tramadol [facility] (unknown) Encounters No information. Functional Status No information. Immunizations No information. Medications No information. Problems No information. Procedures No information. Results/Labs No information. Social History date description facility +0000 Ex-smoker (finding) [facility] Vital Signs date measurement value units +0000 BMI BMI 40.3 kg/m2 +0000 BP_diastolic BP_diastolic 111 mmHg +0000 BP_systolic BP_systolic 151 mmHg +0000 height_metric height_metric 167.64 cm +0000 height_standard height_standard 66 in +0000 respiration_rate respiration_rate 18 /min +0000 temperature_metric temperature_metric 36.61 C +0000 temperature_standard temperature_standard 9 7.9 F +0000 weight_metric weight_metric 113.398 g_ code +0000 weight_standard weight_standard 113.398 g_code +0000 heart_rate heart_rate 57 /min
== END 2022-05-01 10:35 | disposition left against medical advice (07) ==
LOC: ED 10:11
DX: Z53.29 Procedure and treatment not carried out because of patient's decision for other reasons (principal)

== ENCOUNTER 2023-04-17 14:29 | Emergency (ER) | payer MEDICAID ==
[2023-04-17 14:42] VITALS: O2SAT 100
[2023-04-17 14:59] LABS: BASOPHILS # (AUTO) 0.1 10^3/uL (0.0-0.1); BASOPHILS % (AUTO) 1.3 %; EOSINOPHILS # (AUTO) 0.1 10^3/uL (0.0-0.7); EOSINOPHILS % (AUTO) 1.9 %; HCT - HEMATOCRIT 40.4 % (37.0-47.0); HGB - HEMOGLOBIN 13.3 g/dL (12.0-16.0); LYMPHOCYTES # (AUTO) 2.1 10^3/uL (1.5-3.5); LYMPHOCYTES % (AUTO) 33.2 %; MEAN CORPUSCULAR HEMOGLOBIN 31.7 pg (27.0-31.0); MEAN CORPUSCULAR HGB CONC 32.9 g/dL (32.0-36.0); MEAN CORPUSCULAR VOLUME 96.2 fL (81.0-99.0); MEAN PLATELET VOLUME 9.3 fL (7.9-10.8); MONOCYTES # (AUTO) 0.3 10^3/uL (0.0-1.0); MONOCYTES % (AUTO) 4.6 %; NEUTROPHILS # (AUTO) 3.7 10^3/uL (1.5-6.6); NEUTROPHILS % (AUTO) 58.7 %; PLT - PLATELET COUNT 228 10^3/uL (130-450); RED CELL DISTRIBUTION WIDTH 12.5 % (12.0-15.0); WHITE BLOOD COUNT 6.3 x10^3/uL (4.8-10.8)
[2023-04-17 15:13] LABS: ALBUMIN 4.4 g/dL (3.2-5.5); ALBUMIN/GLOBULIN RATIO 1.7 (1.0-2.2); BILIRUBIN,TOTAL 0.6 mg/dL (0.2-1.0); CALCIUM 9.4 mg/dL (8.5-10.3); CREATININE 0.8 mg/dL (0.6-1.3)
[2023-04-17 15:46] LABS: BILIRUBIN,URINE NEGATIVE (NEGATIVE); GLUCOSE, URINE (UA) NEGATIVE (NEGATIVE); KETONES,URINE (UA) NEGATIVE (NEGATIVE); LEUKOCYTE ESTERASE, URINE NEGATIVE (NEGATIVE); NITRITE,URINE NEGATIVE (NEGATIVE); OCCULT BLOOD,URINE NEGATIVE (NEGATIVE); PROTEIN,URINE NEGATIVE (NEGATIVE); UROBILINOGEN,URINE 0.2 (NORMAL) E.U./dL (NORMAL)
[2023-04-17 15:57] LABS: CLARITY,URINE CLEAR (CLEAR); HCG UR QUAL NEGATIVE
[2023-04-17] MEDS ORDERED: KETOROLAC 30 MG/ML VIAL IVP STA (17:04)
--- NOTE | 2023-04-17 17:39 | ED Physician Documentation ---
PD HPI ABD PAIN - Stated complaint Stated Complaint: RT SIDE PX - Chief complaint Chief Complaint: Abd Pain - History obtained from History obtained from: Patient - History of Present Illness Timing - details: Gradual onset Pain level max: 8 Pain level now: 8 Associated symptoms: No: Fever, Nausea, Vomiting, Diarrhea, Constipation, Melena, Hematochezia, Dysuria, Hematuria, Chest pain - Additional information Additional information: Patient is a 42-year-old female who presents to the emergency department stating that she has had a right-sided abdominal pain for the past several weeks. She states that her PCP was treating it as a possible kidney stone. She states the pain is not improved and that she has not been able to get a CT scan approved through her insurance so was referred here. No fevers. No chills. No nausea or vomiting. No diarrhea. No constipation. Denies any possibility of . Nothing makes it better or worse. Has never had a ureteral stone before but did have a 6 mm stone in her kidney on a prior CT scan. 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 : None HEENT: None Psych: Depression, ADD/ADHD Musculoskeletal: None Derm: None - Past Surgical History Past Surgical History: Yes General: Cholecystectomy HEENT: Tonsil/Adenoidectomy - Present Medications Home Medications: Ambulatory Orders Medication Instructions Recorded Confirmed Ibuprofen [Motrin] 800 mg PO Q8H PRN #30 tab 08/03/20 09/18/20 Pregabalin [Lyrica] 50 mg PO DAILY 08/03/20 09/18/20 HYDROcod/ACETAM 5/325 [Irmo 5/325] 1 - 2 ea PO Q6H PRN #14 tablet 09/18/20 Pregabalin [Lyrica] 100 mg PO QPM 09/18/20 09/18/20 Meloxicam [Mobic] 7.5 mg PO BID PRN #20 tablet 10/29/20 Oxycodone HCl/Acetaminophen 1 - 2 each PO Q6H PRN #14 tablet 04/17/23 [Percocet 5-325 mg Tablet] MDD 6 tabs predniSONE [Deltasone] 10 mg PO [id number] #42 tab 04/17/23 - Allergies Allergies/Adverse Reactions: Allergies Allergy/AdvReac Type Severity Reaction Status Date / Time amoxicillin [Amoxicillin] Allergy Rash Verified 10/29/20 11:53 cephalexin monohydrate * Allergy Nausea Verified 10/29/20 11:53 [From Keflex] - Social History Does the pt smoke?: No Smoking Status: Never smoker Does the pt drink ETOH?: No Does the pt have substance abuse?: No - Immunizations Immunizations are current?: Yes - POLST Patient has POLST: No PD ED PE NORMAL - Vitals Vital signs reviewed: Yes - General General: Alert and oriented X 3, No acute distress - HEENT HEENT: PERRL, Moist mucous membranes - Neck Neck: Supple, no meningeal sign - Cardiac Cardiac: RRR, Strong equal pulses - Respiratory Respiratory: No respiratory distress, Clear bilaterally - Abdomen Abdomen: Soft, Non distended, Other (Tender to palpation right lower quadrant and McBurney's point. No peritoneal signs. No CVA tenderness.) - Back Back: No CVA TTP, No spinal TTP - Derm Derm: Warm and dry - Extremities Extremities: No edema, No calf tenderness / cord - Neuro Neuro: Alert and oriented X 3, No motor deficit, No sensory deficit, Other (Normal bilateral lower extremity patellar and ankle jerk reflexes. Normal great toe extension bilaterally. no saddle anesthesia) - Psych Psych: Normal mood, Normal affect Results - Vitals Vitals: Vital Signs - 24 hr 04/17/23 04/17/23 04/17/23 14:33 16:39 18:00 Temperature 37.1 C 37.0 C 36.8 C Heart Rate 66 66 64 Respiratory 18 18 16 Rate Blood Pressure 146/84 H 146/84 H 140/82 H O2 Saturation 100 100 100 04/17/23 19:26 Temperature 36.8 C Heart Rate 62 Respiratory 16 Rate Blood Pressure 130/86 H O2 Saturation 100 Oxygen O2 Source Room air - Labs Labs: Laboratory Tests 04/17/23 04/17/23 04/17/23 14:52 14:52 15:40 WBC 6.3 RBC 4.20 Hgb 13.3 Hct 40.4 MCV 96.2 MCH 31.7 H MCHC 32.9 RDW 12.5 Plt Count 228 MPV 9.3 Neut # (Auto) 3.7 Lymph # (Auto) 2.1 [place] # (Auto) 0.3 Eos # (Auto) 0.1 Baso # (Auto) 0.1 Absolute Nucleated RBC 0.00 Nucleated RBC % 0.0 Sodium 139 Potassium 4.0 Chloride 103 Carbon Dioxide 32 Anion Gap 4.0 L BUN 11 Creatinine 0.8 Estimated GFR (MDRD) 79 L Glucose 96 Calcium 9.4 Total Bilirubin 0.6 AST 18 ALT 25 Alkaline Phosphatase 71 Total Protein 7.0 Albumin 4.4 Globulin 2.6 Albumin/Globulin Ratio 1.7 Lipase 148 H Urine Color YELLOW Urine Clarity CLEAR Urine pH 8.0 H Ur Specific [place] 1.015 Urine Protein NEGATIVE Urine Glucose (UA) NEGATIVE Urine Ketones NEGATIVE Urine Occult Blood NEGATIVE Urine Nitrite NEGATIVE Urine Bilirubin NEGATIVE Urine Urobilinogen 0.2 (NORMAL) Ur Leukocyte Esterase NEGATIVE Ur Microscopic Review NOT INDICATED Urine Culture Comments NOT INDICATED Urine HCG, Qual NEGATIVE - Rads (name of study) CT abdomen pelvis Relevant Findings:: Final report received, See rad report PD Medical Decision Making - ED course Complexity details: reviewed results, re-evaluated patient, considered differential, d/w patient ED course: 42-year-old female with right-sided abdominal pain. No acute findings on laboratory testing or CT scan to explain her symptoms. Does have a mild elevation of her lipase but no evidence of pancreatitis on CT scan. Her pain is also not in the epigastric area. She states similar pain is happened with radiculopathy from her back which resolved with a nerve block. She will follow- up with her pain management nurse practitioner for this. Patient is well-appearing, nontoxic. Afebrile. I will prescribe a small amount of pain medication for home. We will also trial her on a steroid taper. Patient counseled regarding signs and symptoms for which I believe and urgent re-evaluation would be necessary. Patient with good understanding of and agreement to plan and is comfortable going home at this time This document was made in part using voice recognition software. While efforts are made to proofread this document, sound alike and grammatical errors may occur. No evidence of cauda equina, epidural abscess. No indication for emergent MRI. No focal neurological deficits. Departure - Departure Disposition: Home, Self Care Clinical Impression: Abdominal pain Qualifiers: Abdominal location: unspecified location Qualified Code(s): R10.9 - Unspecified abdominal pain Radiculopathy Qualifiers: Spinal region: unspecified Qualified Code(s): M54.10 - Radiculopathy, site unspecified Condition: Good Instructions: ED Abdominal Pain Female Non-Specific Abdominal Pain Follow-Up: KINGA JOE MD [Primary Care Provider] - Within 1 week Prescriptions: predniSONE [Deltasone] 10 mg PO [id number] #42 tab Oxycodone HCl/Acetaminophen [Percocet 5-325 mg Tablet] 1 - 2 each PO Q6H PRN #14 tablet MDD 6 tabs PRN Reason: pain Comments: Your prescriptions were sent to [facility] in [place]. Your CT scan does not show any acute abnormalities today. This may be due to a pinched nerve in your back like it was previously. We will trial you on pain medications and steroids to see if this helps your symptoms. Please follow-up with your doctor for further care. Please return if you worsen. I am prescribing a short course of narcotic pain medication for you. These are potentially dangerous and addictive medications that should be used carefully. These medications may constipate you. Take an fadb-aaw-ueazcpd stool softener (docusate) twice daily with plenty of water while taking these medications. If you go 24 hours without a bowel movement, take czxq-eto-ffgggox miralax, per package instructions. Do not drink or drive while taking these medications. If you received narcotic or sedating medications while in the emergency department, do not drive for 24 hours. Store this medication in a safe, secure place and out of reach of children. It is a violation of federal law to give or sell this medication to another person or to use in a manner other than prescribed. The ED will not refill narcotic prescriptions, including prescriptions lost or stolen. To dispose of unwanted medications: 1. [facility] at [address] in [place] has a medication drop box. They accept prescription medications (in pill form) Monday through Monday 9:00 a.m. to 5:00 p.m. 2. The [facility] accepts prescription medications (in pill form only) for disposal year round. Call for more information. 3. Contact the [facility] for the next [facility] sponsored prescription drug collection event. , [phone], or [phone]; Forms: PCP List Discharge Date/Time: 04/17/23 19:26
--- NOTE | 2023-04-17 18:26 | CT Report ---
PROCEDURE: ABDOMEN/PELVIS W INDICATIONS: RLQ abd pain CONTRAST: 100mL Omni 300 TECHNIQUE: After the administration of intravenous contrast, 5 mm thick sections acquired from the diaphragms to the symphysis. 5 mm thick coronal and sagittal reformats were acquired. For radiation dose reducti on, the following was used: automated exposure control, adjustment of mA and/or kV according to zeyad ent size. COMPARISON: CT abdomen pelvis 07/01/2020 FINDINGS: Image quality: Excellent. Lung bases and heart: Unremarkable. Liver: No solid mass. Gallbladder and biliary tree: Surgically absent. Spleen: No splenomegaly. Pancreas: No pancreatic ductal dilation. Adrenals: No adrenal nodule. Kidneys and ureters: No hydronephrosis. No renal cystic lesion which requires follow up. No solid mas s. Left renal simple appearing cysts. Bowel and peritoneum: No bowel distension. No pathologic free fluid. Normal appendix. Lymph nodes: No central or retroperitoneal adenopathy. Vessels: No infrarenal aortic aneurysm. Minimal atherosclerotic calcifications. PELVIS Reproductive organs: Unremarkable. Bladder: No abnormal wall thickening, accounting for underdistension. Pelvic lymph nodes: No pelvic adenopathy by size criteria. Bones: No aggressive osseous abnormality. Other: No significant ventral or inguinal hernia. IMPRESSION: No cause for patient's pain is identified. Normal appendix. No acute intra-abdominal findings. Reviewed by: Pantera Sunshine MD on 04/17/2023 6:25 PM PDT Approved by: Pantera Sunshine MD on 04/17/2023 6:25 PM PDT Station ID: [id number]
[2023-04-17] MEDS ORDERED: iohexoL-300 100 ML VIAL IVP ONE (18:31)
[2023-04-17 19:33] VITALS: BP 130/86
== END 2023-04-17 19:26 | disposition home or self-care (01) ==
LOC: ED 14:29
DX: M54.10 Radiculopathy, site unspecified (principal); R10.9 Unspecified abdominal pain
CPT/HCPCS: 36415; 74177; 80053; 81003; 81025; 83690; 85025; 96374; 99283; 99284; Q9967; 81001; 87086

== ENCOUNTER 2023-04-24 07:26 | Emergency (ER) | payer MEDICAID ==
[2023-04-24 08:01] VITALS: BP 149/98; O2SAT 98
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
== END 2023-04-24 08:11 | disposition home or self-care (01) ==
LOC: ED 07:26
DX: M54.50 Low back pain, unspecified (principal); Z79.899 Other long term (current) drug therapy
CPT/HCPCS: 99282; 99283

== ENCOUNTER 2023-05-10 11:20 | Emergency (ER) | payer MEDICAID ==
[2023-05-10 12:26] LABS: BASOPHILS % (AUTO) 0.7 %; EOSINOPHILS # (AUTO) 0.1 10^3/uL (0.0-0.7); EOSINOPHILS % (AUTO) 1.3 %; HCT - HEMATOCRIT 44.2 % (37.0-47.0); LYMPHOCYTES # (AUTO) 1.6 10^3/uL (1.5-3.5); LYMPHOCYTES % (AUTO) 28.4 %; MEAN CORPUSCULAR HEMOGLOBIN 31.2 pg (27.0-31.0); MEAN CORPUSCULAR HGB CONC 31.7 g/dL (32.0-36.0); MEAN CORPUSCULAR VOLUME 98.4 fL (81.0-99.0); MEAN PLATELET VOLUME 9.9 fL (7.9-10.8); MONOCYTES # (AUTO) 0.2 10^3/uL (0.0-1.0); MONOCYTES % (AUTO) 4.3 %; NEUTROPHILS # (AUTO) 3.6 10^3/uL (1.5-6.6); NEUTROPHILS % (AUTO) 65.3 %; PLT - PLATELET COUNT 223 10^3/uL (130-450); RED BLOOD COUNT 4.49 10^6/uL (4.20-5.40); RED CELL DISTRIBUTION WIDTH 12.5 % (12.0-15.0); WHITE BLOOD COUNT 5.6 x10^3/uL (4.8-10.8)
[2023-05-10 12:44] LABS: ALBUMIN 4.4 g/dL (3.2-5.5); ALBUMIN/GLOBULIN RATIO 2.1 (1.0-2.2); BILIRUBIN,TOTAL 0.4 mg/dL (0.2-1.0); CALCIUM 9.5 mg/dL (8.5-10.3); CREATININE 0.9 mg/dL (0.6-1.3); POTASSIUM 4.4 mmol/L (3.5-4.5); TOTAL PROTEIN 6.5 g/dL (6.4-8.9)
[2023-05-10 14:14] LABS: MUDS CUTOFF CONCENTRATIONS CUTOFF CONC BELOW:
[2023-05-10 14:20] LABS: BILIRUBIN,URINE NEGATIVE (NEGATIVE); GLUCOSE, URINE (UA) NEGATIVE (NEGATIVE); KETONES,URINE (UA) NEGATIVE (NEGATIVE); LEUKOCYTE ESTERASE, URINE NEGATIVE (NEGATIVE); NITRITE,URINE NEGATIVE (NEGATIVE); OCCULT BLOOD,URINE LARGE (NEGATIVE); PH,URINE 6.5 PH (5.0-7.5); PROTEIN,URINE 30 mg/dL (NEGATIVE); UROBILINOGEN,URINE 0.2 (NORMAL) E.U./dL (NORMAL)
[2023-05-10 14:21] LABS: CLARITY,URINE CLEAR (CLEAR); HCG UR QUAL NEGATIVE
[2023-05-10 14:29] LABS: AMORPHOUS SEDIMENT,UR Few /LPF; AMPHETAMINE SCREEN,URINE NEGATIVE (NEGATIVE); BACTERIA,URINE Few /HPF (None Seen); BARBITURATE SCREEN,UR NEGATIVE (NEGATIVE); BENZODIAZEPINES SCREEN, URINE NEGATIVE (NEGATIVE); COCAINE SCREEN URINE NEGATIVE (NEGATIVE); METHADONE SCREEN, URINE NEGATIVE (NEGATIVE); METHAMPHETAMINES SCREEN, URINE NEGATIVE (NEGATIVE); OPIATE SCREEN, URINE NEGATIVE (NEGATIVE); OXYCODONE SCREEN, URINE NEGATIVE (NEGATIVE); PROPOXYPHENE SCREEN, URINE NEGATIVE (NEGATIVE); SQUAMOUS EPITHELIAL CELL,UR MOD Squamous (<= Few); THC CANNABINOID SCREEN, URINE POSITIVE (NEGATIVE); TRICYCLIC ANTIDEPRESSANT,URINE NEGATIVE (NEGATIVE)
--- NOTE | 2023-05-10 14:37 | ED Physician Documentation ---
PD HPI ABD PAIN - Stated complaint Stated Complaint: RT SIDE PX - Chief complaint Chief Complaint: Abd Pain - History obtained from History obtained from: Patient - Additional information Additional information: 42-year-old woman with history of ovarian cysts, chronic back pain, cholecystectomy, possible endometriosis has had right pelvic pain for almost 2 months pretty consistently now. Was initially thought to be related to renal colic as she has had that in the past as well, but subsequently CT scanning did not demonstrate that. She had per her report an outpatient ultrasound demonstrating a right ovarian cyst that was uncomplicated now that is the presumed cause of her pain. She was going to go to pain clinic today more for her back as she has chronic back pain, they do not prescribe medications, but they canceled it and she called her primary care physician's office but no one was available. She been trying Tylenol and ibuprofen for pain without relief. She denies fevers, chills, increase in her pain, or changes in bowel movements. 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 HEENT: None Psych: Depression, ADD/ADHD Musculoskeletal: None Derm: None - Past Surgical History Past Surgical History: Yes General: Cholecystectomy HEENT: Tonsil/Adenoidectomy - Present Medications Home Medications: Ambulatory Orders Medication Instructions Recorded Confirmed Pregabalin [Lyrica] 150 mg PO BID 08/03/20 04/24/23 Oxycodone HCl/Acetaminophen 1 - 2 each PO Q6H PRN #14 tablet 04/17/23 04/24/23 [Percocet 5-325 mg Tablet] MDD 6 tabs predniSONE [Deltasone] 10 mg PO [id number] #42 tab 04/17/23 04/24/23 DULoxetine [Cymbalta] 60 mg PO DAILY 04/24/23 04/24/23 Oxycodone HCl/Acetaminophen 1 each PO Q6H PRN #12 tablet 04/24/23 [Percocet 5-325 mg Tablet] Tizanidine HCl 2 mg PO Q8HR PRN 04/24/23 04/24/23 Oxycodone HCl/Acetaminophen 1 - 2 each PO Q6H PRN #14 tablet 05/10/23 [Percocet 5-325 mg Tablet] - Allergies Allergies/Adverse Reactions: Allergies Allergy/AdvReac Type Severity Reaction Status Date / Time amoxicillin [Amoxicillin] Allergy Rash Verified 10/29/20 11:53 cephalexin monohydrate * Allergy Nausea Verified 10/29/20 11:53 [From Keflex] meloxicam AdvReac Nausea Verified 04/24/23 07:46 - Social History Does the pt smoke?: No Smoking Status: Never smoker Does the pt drink ETOH?: No Does the pt have substance abuse?: No - Immunizations Immunizations are current?: Yes - POLST Patient has POLST: No PD ED PE NORMAL - Vitals Vital signs reviewed: Yes - General General: Alert and oriented X 3, No acute distress - Abdomen Abdomen: Normal bowel sounds, Soft, Non tender - Back Back: No CVA TTP, No spinal TTP - Derm Derm: Normal color, Warm and dry - Neuro Neuro: Alert and oriented X 3, Normal speech Results - Vitals Vitals: Vital Signs - 24 hr 05/10/23 11:30 Temperature 36.5 C Heart Rate 75 Respiratory 16 Rate Blood Pressure 147/93 H O2 Saturation 98 Oxygen O2 Source Room air - Labs Labs: Laboratory Tests 05/10/23 05/10/23 05/10/23 12:22 12:22 14:00 WBC 5.6 RBC 4.49 Hgb 14.0 Hct 44.2 MCV 98.4 MCH 31.2 H MCHC 31.7 L RDW 12.5 Plt Count 223 MPV 9.9 Neut # (Auto) 3.6 Lymph # (Auto) 1.6 [place] # (Auto) 0.2 Eos # (Auto) 0.1 Baso # (Auto) 0.0 Absolute Nucleated RBC 0.00 Nucleated RBC % 0.0 Sodium 139 Potassium 4.4 Chloride 106 Carbon Dioxide 29 Anion Gap 4.0 L BUN 13 Creatinine 0.9 Estimated GFR (MDRD) 69 L Glucose 90 Calcium 9.5 Total Bilirubin 0.4 AST 17 ALT 18 Alkaline Phosphatase 55 Total Protein 6.5 Albumin 4.4 Globulin 2.1 Albumin/Globulin Ratio 2.1 Urine Color YELLOW Urine Clarity CLEAR Urine pH 6.5 Ur Specific [place] 1.020 Urine Protein 30 H Urine Glucose (UA) NEGATIVE Urine Ketones NEGATIVE Urine Occult Blood LARGE H Urine Nitrite NEGATIVE Urine Bilirubin NEGATIVE Urine Urobilinogen 0.2 (NORMAL) Ur Leukocyte Esterase NEGATIVE Urine RBC 11-25 H Urine WBC 4-5 Ur Squamous Epith Cells MOD Squamous H Amorphous Sediment Few Urine Bacteria Few Ur Microscopic Review INDICATED Urine Culture Comments NOT INDICATED Urine HCG, Qual NEGATIVE Urine Opiates Screen NEGATIVE Ur Oxycodone Screen NEGATIVE Urine Methadone Screen NEGATIVE Ur Propoxyphene Screen NEGATIVE Ur Barbiturates Screen NEGATIVE Ur Tricyclics Screen NEGATIVE Ur Phencyclidine Scrn NEGATIVE Ur Amphetamine Screen NEGATIVE U Methamphetamines Scrn NEGATIVE U Benzodiazepines Scrn NEGATIVE Urine Cocaine Screen NEGATIVE U Cannabinoids Screen POSITIVE H PD Medical Decision Making - ED course ED course: 42-year-old with known ovarian cyst pain, requesting analgesia. Discussed with her that this would her be her third prescription for narcotics from this emergency department in the last year and further prescription may not be forthcoming. She is nontender with no evidence of emergency medical condition. CBC, CMP, urinalysis negative/normal. Departure - Departure Disposition: Home, Self Care Clinical Impression: Ovarian cyst, right Condition: Good Record reviewed to determine appropriate education?: Yes Instructions: ED Pelvic Pain [facility] Prescriptions: Oxycodone HCl/Acetaminophen [Percocet 5-325 mg Tablet] 1 - 2 each PO Q6H PRN #14 tablet PRN Reason: pain Comments: I sent your prescription electronically to [email or web address] in [place]. Continue your efforts to follow-up with primary care and [facility] RN. Return for new or worsening symptoms. I am prescribing a short course of narcotic pain medication for you. These are potentially dangerous and addictive medications that should be used carefully. These medications may constipate you. Take an atow-bfg-tscortg stool softener (docusate) twice daily with plenty of water while taking these medications. If you go 24 hours without a bowel movement, take hfck-hrr-slvsjiq miralax, per package instructions. Do not drink or drive while taking these medications. If you received narcotic or sedating medications while in the emergency department, do not drive for 24 hours. Store this medication in a safe, secure place and out of reach of children. It is a violation of federal law to give or sell this medication to another person or to use in a manner other than prescribed. The ED will not refill narcotic prescriptions, including prescriptions lost or stolen. To dispose of unwanted medications: 1. [facility] provides a drop box for medication in pill form only (no liquids) 8:00 am to 4:30 p.m. Monday-Monday in the lobby of the [facility], [address] Empty pills into ziplock bag before disposal. Call [phone] for information. 2.[employer] is a free service available to all [facility] residents. Go to [email or web address] Note that many narcotic pain relievers also contain Tylenol/acetaminophen. Please ensure that your total dose of acetaminophen from all sources does not exceed 3 g (3000 mg) per day. Forms: PCP List
[2023-05-10 14:50] VITALS: BP 139/80; O2SAT 97
== END 2023-05-10 14:46 | disposition home or self-care (01) ==
LOC: ED 11:20
DX: N83.201 Unspecified ovarian cyst, right side (principal)
CPT/HCPCS: 36415; 80053; 80306; 81001; 81003; 81025; 85025; 87086; 99283